=== PATIENT | male | born 1935 | race Caucasian/White ===

== ENCOUNTER 2019-08-06 00:17 | Inpatient (IN) ==
--- NOTE | 2019-07-25 10:34 | EKG Report ---
Test Performed on : 07/25/2019 10:18:41 AM Test Reason : PAT Blood Pressure : / mmHG Vent. Rate : 075 BPM Atrial Rate : 375 BPM P-R Int : 000 ms QRS Dur : 172 ms QT Int : 444 ms P-R-T Axes : 000 -18 188 degrees QTc Int : 495 ms Atrial fibrillation. with a competing junctional pacemaker. with premature ventricular or aberrantly conducted complexes. Left bundle branch block Abnormal ECG When compared with ECG of 25-MAR-2011 13:26, Atrial fibrillation. has replaced Sinus rhythm. Left bundle branch block is now present Minimal criteria for Septal infarct are no longer present Confirmed by Dayana TRINIDAD, Yasmani ([id number]) on 07/26/2019 10:39:59 AM
[2019-07-25 10:36] LABS: URINE SOURCE CLEAN CATCH
[2019-07-25 10:44] LABS: BASO# 0.03 X1000 (0.0-0.2); BASO% 0.3 % (0.0-0.8); EOS# 0.46 X1000 (0.0-0.7); HEMATOCRIT 34.3 % (42.0-52.0); HEMOGLOBIN 10.1 g/dL (14.0-18.0); IMM GRAN# 0.03 X1000 (0.0-0.04); IMM GRAN% 0.3 % (0.0-0.5); LYMPH# 0.86 X1000 (1.2-3.4); LYMPH% 9.4 % (20.5-51.1); MCH 24.7 PG (27-31); MCHC 29.4 g/dL (33-37); MCV 83.9 FL (81-99); MONO% 7.7 % (1.7-9.3); MPV 10.7 FL (7.4-10.4); NEUT# 7.03 X1000 (1.4-6.5); NEUT% 77.3 % (42.2-75.2); PLT 194 X1000 (130-400); RBC 4.09 XMIL (4.7-6.1); RDW 20.5 % (11.5-14.5); WBC 9.11 X1000 (4.8-10.8)
[2019-07-25 10:45] LABS: BILIRUBIN URINE NEGATIVE (NEGATIVE); BLOOD URINE NEGATIVE (NEGATIVE); COLOR YELLOW; GLUCOSE URINE NEGATIVE (NEGATIVE); KETONE URINE NEGATIVE (NEGATIVE); LEUKOCYTES URINE NEGATIVE (NEGATIVE); NITRITE URINE NEGATIVE (NEGATIVE); PH URINE 5.5; PROTEIN URINE NEGATIVE (NEGATIVE); SP GRAVITY URINE 1.012; TURBIDITY URINE CLEAR (CLEAR); UROBILINOGEN URINE NORMAL (NORMAL)
[2019-07-25 10:46] LABS: UR EPITHELIAL CELLS <10 /HPF (<10); URINE BACTERIA NEGATIVE /HPF; URINE RBC <10 /HPF (<10); URINE WBC <10 /HPF (<10)
[2019-07-25 10:51] LABS: INR 2.97; PROTIME 31.8 Seconds (11.0-16.0)
[2019-07-25 10:52] LABS: PTT 48.6 Seconds (22.3-41.8)
[2019-07-25 10:54] LABS: HEMOGLOBIN A1C 5.6 % (4.8-6.0)
[2019-07-25 11:11] LABS: ALBUMIN 4.3 g/dL (3.5-5.0); CREATININE 2.3 mg/dL (0.7-1.2); POTASSIUM 4.3 mmol/L (3.5-5.1)
[2019-08-06] MEDS ORDERED: REGLAN ONE (07:21)
[2019-08-06] MEDS ORDERED: COLACE ONE (07:21)
[2019-08-06] MEDS ORDERED: PEPCID ONE (07:21)
[2019-08-06] MEDS ORDERED: CELEBREX ONE (07:22)
[2019-08-06] MEDS ORDERED: KEFZOL 1 GM/D5W 2 GM/100 ML IVPB ONE (07:22)
[2019-08-06] MEDS ORDERED: LYRICA ONE (07:22)
[2019-08-06] MEDS ORDERED: LR 500 ML ONE (07:22)
[2019-08-06] MEDS ORDERED: SENSORCAINE-MPF 0.5%/EPI 1:200,000 ONE (07:34)
[2019-08-06] MEDS ORDERED: VANCOMYCIN ONE (07:34)
[2019-08-06] MEDS ORDERED: DURAMORPH ONE (07:34)
[2019-08-06] MEDS ORDERED: TORADOL ONE (07:34)
[2019-08-06] MEDS ORDERED: CYKLOKAPRON 1,000 MG/NS 1,000 MG/100 ML IVPB ONE (07:35)
[2019-08-06] MEDS ORDERED: NEOSPORIN G.U. IRRIGANT ONE (07:35)
[2019-08-06] MEDS ORDERED: SODIUM CHLORIDE 0.9% ONE (07:35)
[2019-08-06] MEDS ORDERED: EXPAREL 1.3% ONE (07:35)
[2019-08-06 07:47] LABS: INR 1.36
[2019-08-06] MEDS ORDERED: VERSED ONE (08:09)
[2019-08-06] MEDS ORDERED: FENTANYL ONE (08:09)
[2019-08-06] MEDS ORDERED: DIPRIVAN 1% ONE (08:10)
[2019-08-06] MEDS ORDERED: SUFENTA ONE (08:56)
[2019-08-06] MEDS ORDERED: ZOFRAN ONE (10:16)
[2019-08-06] MEDS ORDERED: EPHEDRINE ONE (10:16)
[2019-08-06] MEDS ORDERED: PITRESSIN ONE (10:17)
[2019-08-06] MEDS ORDERED: OFIRMEV 1000 MG/ISOTONIC SOLN 1,000 MG/100 ML BOTTLE ONE (10:17)
[2019-08-06 10:36] LABS: URINE SOURCE CATH
[2019-08-06 10:42] LABS: BILIRUBIN URINE NEGATIVE (NEGATIVE); BLOOD URINE NEGATIVE (NEGATIVE); COLOR YELLOW; GLUCOSE URINE NEGATIVE (NEGATIVE); KETONE URINE NEGATIVE (NEGATIVE); LEUKOCYTES URINE NEGATIVE (NEGATIVE); NITRITE URINE NEGATIVE (NEGATIVE); PH URINE 5.5; PROTEIN URINE TRACE mg/dL (NEGATIVE); SP GRAVITY URINE 1.018; TURBIDITY URINE CLEAR (CLEAR); UROBILINOGEN URINE NORMAL (NORMAL)
[2019-08-06 10:43] LABS: UR EPITHELIAL CELLS <10 /HPF (<10); URINE BACTERIA NEGATIVE /HPF; URINE RBC <10 /HPF (<10); URINE WBC <10 /HPF (<10)
--- NOTE | 2019-08-06 11:25 | OPERATIVE NOTE ---
PROCEDURE DATE: 08/06/2019 PREOPERATIVE DIAGNOSIS: Degenerative joint disease, right knee. POSTOPERATIVE DIAGNOSIS: Degenerative joint disease, right knee. PROCEDURE PERFORMED: Right total knee replacement. SURGEON: Kip Brady MD. LINUX SUPPORT ENGINEER: IVAN Pardo. Ms. Mcdonnell was necessary for proper retraction and manipulation during the case. ANESTHESIA: General. COMPLICATION: None. PROCEDURE IN DETAIL: This 84-year-old male presents for right knee replacement. Risks, benefits, and no guarantees were discussed, and he is willing to proceed. He was taken the operating room and satisfactory anesthesia obtained. The right leg was prepped and draped in usual sterile fashion. A time-out was taken to confirm operative site, procedure, and patient. The leg was wrapped with an Esmarch and tourniquet inflated to 300 mmHg. A midline incision was made down the front of the knee followed by a quad tendon sparing arthrotomy. The patella was everted and resurfaced with freehand technique and subluxed laterally. With the knee flexed, an intramedullary hole was made in the distal femur, and the distal femoral cutting block was secured in 5 degrees of valgus. Then, 10 mm was taken off the distal femur and the distal femur sized to a size 9 DePuy Attune femoral implant. The 4 in 1 block was secured and the anterior, posterior and chamfer cuts sequentially made. Care was taken to preserve the PCL. Any remaining osteophytes were debrided. Posterior osteophytes were debrided from the femur as well as a couple loose bodies. The knee was flexed and a PCL retractor placed behind the tibia to protect the neurovascular bundle. Tibial cutting block was secured and the tibial resection made. Flexion and extension gaps were slightly tight in both areas and an additional 2 mm taken off the tibia with good soft tissue balance. The tibia was sized to a size 10 tibial tray. A trial reduction was performed with a size 10 trial tray, a size 9 cruciate retaining femoral component with good range of motion and stability with a 6 mm spacer. The patella was sized to a 38 medialized dome patella. The drill holes were placed for the patella and femoral implants and the trial components removed. The bony surfaces were thoroughly irrigated with irrigant and then dried. Cement with a gram of vancomycin was utilized to cement a size 10 rotating platform DePuy Attune tibial tray, a size 9 right cruciate retaining femoral component and a 38 medialized dome patella. Excess cement was removed with a [place] elevator. While the cement cured, the joint capsule was injected with Exparel and a Hemovac drain placed. After curing the cement, a size 9, 6 mm thick rotating platform polyethylene bearing was inserted in the tibial tray and the knee reduced. Final range of motion was 0 to 120 degrees with midline patellar tracking. The wound was copiously irrigated and closed over the drain with #1 Vicryl in the arthrotomy, 2-0 Vicryl in the subcutaneous and skin tenzin on the skin edges. Sterile dressings were applied and the tourniquet released with good return of capillary blood flow. No intraoperative complications were noted. Instrument count and sponge count was correct at the time of closure. cc: Billy Brady MD
[2019-08-06] MEDS ORDERED: NS 1,000 ML ONE (12:09)
[2019-08-06] MEDS ORDERED: MORPHINE IV PRN ×3 (12:45)
[2019-08-06] MEDS ORDERED: ZOFRAN IV PRN (12:45)
[2019-08-06] MEDS ORDERED: ZOFRAN ODT PO PRN (12:45)
[2019-08-06] MEDS ORDERED: OXY IR PO PRN ×2 (12:45)
--- NOTE | 2019-08-06 13:15 | Diag Imaging Result Doc PS360 ---
EXAM: KNEE 1-2 VIEWS-RIGHT 08/06/2019 HISTORY: post op total knee TECHNIQUE: Right knee two views COMMENT: There is a total knee arthroplasty. There is no evidence of acute bony abnormality. IMPRESSION: Postsurgical changes. Electronically signed by Brian Zimmerman 08/06/2019 1:13 PM
--- NOTE | 2019-08-06 14:06 | ORTHOPAEDICS PROGRESS NOTE ---
DATE: 08/06/2019 SUBJECTIVE: Mr. Hollis is seen status post right total knee replacement. He is awake and alert at the present time. OBJECTIVE: Vital signs are stable. His postop x-rays look good. His bandage is clean and dry. He is able to move the ankle up and down. There is good capillary refill. He has minimal discomfort currently. PLAN: We will plan on mobilizing over the next several days. We have also asked the hospitalist to see him for medical and geriatric care. cc: Billy Brady MD
[2019-08-06] MEDS: TYLENOL PO SCH (14:43)
[2019-08-06] MEDS: ULTRAM PO SCH ×2 (14:48→19:57)
[2019-08-06] MEDS: KEFZOL 2 GM/D5W 2 GM/50 ML IVPB IV SCH (17:17)
[2019-08-06] MEDS: NS 1,000 ML IV SCH (19:56)
[2019-08-06 20:06] LABS: HEMATOCRIT 30.6 % (42.0-52.0); HEMOGLOBIN 9.4 g/dL (14.0-18.0); MCHC 30.7 g/dL (33-37); MCV 87.9 FL (81-99); MPV 12.1 FL (7.4-10.4); RBC 3.48 XMIL (4.7-6.1); WBC 9.45 X1000 (4.8-10.8)
[2019-08-06 20:32] LABS: CALCIUM 8.7 mg/dL (8.8-10.2); CREATININE 2.3 mg/dL (0.7-1.2); POTASSIUM 4.3 mmol/L (3.5-5.1)
--- NOTE | 2019-08-06 20:49 | CONSULTATION ---
DATE OF CONSULTATION: 08/06/2019 CHIEF COMPLAINT: Medical management after right knee arthroplasty by Dr. Brady. HISTORY OF PRESENT ILLNESS: He is a complicated historian. An 84-year-old white gentleman, had a right knee arthroplasty done. The patient stopped Coumadin 3 days ago. He has chronic anemia. Postoperatively, the patient denies any chest pain or shortness of breath. Oxygen level is 100%. Hemodynamics are stable. He also had anemia workup that was negative, outpatient. PAST MEDICAL HISTORY: Atrial fibrillation; left-sided carotid stenosis, 70%; cutaneous ulcers in the right alicea, healing; chronic kidney disease, creatinine 2.0; coronary artery disease; acid reflux disease; gout; hyperlipidemia; hypertension; ITP; sleep apnea; low HDL; varicose veins of lower extremities; PAD; left carotid disease; right superficial femoral artery stenosis. Right MARGA 0.3, left side is 1.0. 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 MEDICATIONS: Warfarin 3 mg daily, pravastatin 20 mg daily, Coreg 25 p.o. b.i.d., Aldactone 25 in the morning, Prilosec 40 mg daily, Lasix 260 mg daily, vitamin C 500 mg daily, calcitriol 0.25 mcg daily, Pletal 100 mg daily, sublingual B12 daily, allopurinol 300 daily, aspirin 81 mg daily, iron sulfate 325 daily. ALLERGIES: Not known. SOCIAL HISTORY: He is . used to work in [facility] [facility] [employer]. No smoking. No alcohol. No drug abuse. FAMILY HISTORY: Father of lung cancer at 62, mother at 57 with pancreatic and liver cancer. REVIEW OF SYSTEMS: No headache, no vision problem. Cardiopulmonary: No chest pain, shortness of breath, PND or orthopnea. GI: No nausea, no vomiting, abdominal pain. No neurological symptoms or weakness. PHYSICAL EXAMINATION: Temperature is 94 degrees, pulse 56, vital signs are stable; 100% on room air. Slightly pale. Chest: Bilateral air entry. Irregular heart sounds, rate well controlled. Belly is soft, nontender. He had a right knee arthroplasty done. No signs of gangrene. No neurological deficits. LABORATORY DATA: CBC pending. PT 17, INR 1.3. Glucose 186. A1c 5.6. Urinalysis is clear. ASSESSMENT AND PLAN: 1. An 84-year-old complicated historian, admitted to the hospital status post right knee arthroplasty. Plan as follows. 2. Chronic atrial fibrillation. Cleared by Dr. Puente. Restart on warfarin along with aspirin. 3. Peripheral arterial disease in the right leg, on Pletal 100 daily. 4. History of sleep apnea, on continuous positive airway pressure machine by Dr. Mehta. 5. Chronic kidney disease stage 3. Creatinine 2.0. 6. Acid reflux disease, on Prilosec 40 mg daily. 7. Gout, on allopurinol 300 daily. 8. Hyperlipidemia, on pravastatin 20 daily. 9. History of coronary artery disease, status post stents and bypass surgery; automatic implantable cardioverter-defibrillator. Continue on Coreg and Aldactone. 10. Left carotid stenosis 70%, stable. 11. Vitamin D and B12 deficiency, on replacement therapy. 12. Repeat the CBC, BMP in the morning. Continue to monitor PT/INR. Discussed the plan of care with family. He wants to go home after he recovers from the surgery. We will follow up. Once again, thanks for the kind referral. cc: MD Billy Gaston MD
[2019-08-06] MEDS ORDERED: CELEBREX PO SCH (21:00)
[2019-08-07] MEDS: TYLENOL PO SCH ×4 (01:00→19:13)
[2019-08-07] MEDS: KEFZOL 2 GM/D5W 2 GM/50 ML IVPB IV SCH (01:01)
[2019-08-07] MEDS: NS 1,000 ML IV SCH ×3 (01:01→15:47)
[2019-08-07] MEDS: COLACE PO SCH ×3 (02:05→21:44)
[2019-08-07] MEDS: COREG PO SCH ×2 (02:06→08:19)
[2019-08-07] MEDS: PERIDEX MT SCH ×3 (02:06→21:44)
[2019-08-07] MEDS: ULTRAM PO SCH ×3 (02:08→15:43)
[2019-08-07 06:31] LABS: BASO# 0.02 X1000 (0.0-0.2); BASO% 0.3 % (0.0-0.8); EOS# 0.06 X1000 (0.0-0.7); EOS% 0.8 % (0.0-10.0); HEMATOCRIT 29.9 % (42.0-52.0); HEMOGLOBIN 8.9 g/dL (14.0-18.0); LYMPH# 0.63 X1000 (1.2-3.4); MCH 26.2 PG (27-31); MCHC 29.8 g/dL (33-37); MCV 87.9 FL (81-99); MONO# 0.58 X1000 (0.11-0.59); MONO% 7.4 % (1.7-9.3); MPV 11.8 FL (7.4-10.4); NEUT# 6.57 X1000 (1.4-6.5); NEUT% 83.5 % (42.2-75.2); PLT 139 X1000 (130-400); RDW 21.9 % (11.5-14.5); WBC 7.86 X1000 (4.8-10.8)
[2019-08-07 06:53] LABS: CALCIUM 8.2 mg/dL (8.8-10.2); CREATININE 2.5 mg/dL (0.7-1.2); POTASSIUM 4.7 mmol/L (3.5-5.1)
[2019-08-07 07:24] LABS: INR 1.56
[2019-08-07] MEDS ORDERED: COUMADIN PO ONE (07:55)
[2019-08-07] MEDS: ZYLOPRIM PO SCH (08:34)
[2019-08-07] MEDS: ASPIRIN PO SCH (08:34)
[2019-08-07] MEDS: PLETAL PO SCH (08:34)
[2019-08-07] MEDS: PRILOSEC PO SCH (08:34)
[2019-08-07] MEDS: ROCALTROL PO SCH (08:34)
[2019-08-07] MEDS: FERROUS SULFATE PO SCH (08:34)
[2019-08-07] MEDS: VITAMIN C PO SCH (08:34)
[2019-08-07] MEDS: VITAMIN B-12 PO SCH (08:35)
[2019-08-07] MEDS: PEPCID PO SCH (08:35)
[2019-08-07] MEDS: PRAVACHOL PO SCH (08:35)
[2019-08-07] MEDS: COUMADIN PO SCH (08:37)
[2019-08-07] MEDS: ALDACTONE PO SCH (08:38)
--- NOTE | 2019-08-07 08:39 | PROGRESS NOTE ---
DATE: 08/07/2019 SUBJECTIVE: The patient denies having any acute complaints this morning. OBJECTIVE: Vital Signs: Temperature 98 degrees, pulse 61 per minute, respiratory rate 16 per minute, blood pressure 101/48, pulse oximetry 100% on 2 liters of oxygen via nasal cannula. General: Patient is alert and awake. He does not appear to be in any acute distress. Cardiovascular System: First and second heart sounds are audible without any murmurs or gallops. Irregular rhythm is present. Respiratory System: Bilateral lung air entry is good without any rales or rhonchi. Gastrointestinal System: Abdomen is benign. Musculoskeletal System: Right knee has a surgical dressing. DIAGNOSTIC DATA: CBC done this morning showed hemoglobin of 8.9 and hematocrit 29.9. In comparison, his hemoglobin and hematocrit were 9.4 and 30.6 yesterday. Basic metabolic panel showed BUN of 45 and creatinine 2.5. In comparison, his BUN and creatinine were 41 and 2.3 on 07/25/2019 and were 44 and 2.3 respectively on 08/06/2019. INR was found to be 1.56 this morning. IMPRESSION AND PLAN: This is an 84-year-old gentleman who has multiple medical conditions, including chronic atrial fibrillation, peripheral arterial disease, stage 3 chronic kidney disease, sleep apnea, dyslipidemia, and gastroesophageal reflux disease, who recently underwent right sided total knee arthroplasty. He does have some anemia that is currently being monitored. We will give him packed red blood cell transfusion if needed. His INR is subtherapeutic at 1.56, and therefore, I am going to give him an additional dose of warfarin 3 mg orally now in addition to 3 mg of warfarin that he has been taking on a daily basis. Overall condition is stable, and we will continue with this care as per Orthopedics for physical therapy and treatment of his right knee. cc: MD Billy Bhatt MD
[2019-08-07] MEDS: LASIX PO SCH ×2 (08:40→08:42)
--- NOTE | 2019-08-07 10:22 | ORTHOPAEDICS PROGRESS NOTE ---
DATE: 08/07/2019 SUBJECTIVE: Mr. Schwartz is seen status post total knee replacement. OBJECTIVE: This morning he is awake and alert and cooperative. His hematocrit is 29. Vital signs show that he is afebrile. Blood pressure has been relatively good except for 1 drop down to 93/48 overnight. It is back up to 101/48, currently. PLAN: We will keep him in-house today. The hospitalist is adjusting his Coumadin level. Currently, he is not stable enough to be discharged home. We will consider repeat evaluation for home discharge versus inpatient rehab tomorrow cc: Billy Brady MD
[2019-08-07] MEDS ORDERED: ULTRAM PO PRN (18:49)
[2019-08-08] MEDS: COREG PO SCH ×2 (00:17→09:05)
[2019-08-08] MEDS: TYLENOL PO SCH ×4 (04:38→18:02)
[2019-08-08] MEDS: NS 1,000 ML IV SCH ×2 (05:21→18:59)
[2019-08-08 06:50] LABS: INR 1.58; PROTIME 19.1 Seconds (11.0-16.0)
[2019-08-08 07:06] LABS: CALCIUM 8.4 mg/dL (8.8-10.2); CREATININE 3.1 mg/dL (0.7-1.2); POTASSIUM 4.8 mmol/L (3.5-5.1)
[2019-08-08] MEDS: FERROUS SULFATE PO SCH (09:00)
[2019-08-08] MEDS: ALDACTONE PO SCH ×2 (09:00→09:06)
[2019-08-08] MEDS: PRILOSEC PO SCH (09:00)
[2019-08-08] MEDS: ASPIRIN PO SCH (09:00)
[2019-08-08] MEDS: ROCALTROL PO SCH (09:00)
[2019-08-08] MEDS: ZYLOPRIM PO SCH (09:00)
[2019-08-08] MEDS: COUMADIN PO SCH (09:01)
[2019-08-08] MEDS: VITAMIN B-12 PO SCH (09:01)
[2019-08-08] MEDS: PEPCID PO SCH (09:01)
[2019-08-08] MEDS: PRAVACHOL PO SCH (09:01)
[2019-08-08] MEDS: VITAMIN C PO SCH (09:01)
[2019-08-08] MEDS: COLACE PO SCH (09:01)
[2019-08-08] MEDS: PERIDEX MT SCH (09:02)
[2019-08-08] MEDS: LASIX PO SCH (09:02)
[2019-08-08] MEDS: PLETAL PO SCH (09:02)
--- NOTE | 2019-08-08 09:48 | ORTHOPAEDICS PROGRESS NOTE ---
DATE: 08/08/2019 Mr. Schwartz is seen status post total knee replacement. He is stable with vital signs. There is some [id number] hypotension intermittently. He continues to require significant assistance with mobility. He requires roughly 2 with standby assist for mobility training. Currently, he is not a candidate for home discharge or rehab. Will make arrangements to go ahead and begin discharge planning for inpatient rehab. He could go tomorrow if he is medically stable. The bandage and incision are clean and dry. There are no signs of DVT or surgical complications. He appears to be predominantly limited due to his overall geriatric condition. cc: Billy Brady MD
--- NOTE | 2019-08-08 13:11 | Diag Imaging Result Doc PS360 ---
EXAM: CHEST-1 VIEW 08/08/2019 HISTORY: REHAB TECHNIQUE: AP portable at 1301 COMMENT: There is pleural thickening and fibrosis on the left. There is mild cardiomegaly. There are sternotomy wires and there is a pacemaker on the left. Overall there has been no appreciable change since 03/07/2014. IMPRESSION: Stable chest. Electronically signed by Brian Zimmerman 08/08/2019 1:09 PM
[2019-08-09] MEDS: COLACE PO SCH (00:14)
[2019-08-09] MEDS: PERIDEX MT SCH ×2 (00:14→09:54)
[2019-08-09] MEDS: COREG PO SCH ×2 (00:15→09:57)
[2019-08-09] MEDS: TYLENOL PO SCH ×4 (00:15→06:41)
[2019-08-09 06:58] LABS: CREATININE 2.6 mg/dL (0.7-1.2); POTASSIUM 5.1 mmol/L (3.5-5.1)
[2019-08-09 07:00] LABS: INR 1.75; PROTIME 20.8 Seconds (11.0-16.0)
--- NOTE | 2019-08-09 07:43 | DISCHARGE SUMMARY ---
ADMISSION DATE: 08/06/2019 DISCHARGE DATE: 08/09/2019 PREOPERATIVE DIAGNOSIS: Degenerative joint disease, right knee. ADDITIONAL DIAGNOSES: 1. Gout. 2. Atrial fibrillation. 3. Mild senile dementia. DISCHARGE DIAGNOSES: 1. Degenerative joint disease, right knee. 2. Gout. 3. Atrial fibrillation. 4. Mild senile dementia. 5. Acute blood loss anemia. ADMITTING HISTORY AND HOSPITAL COURSE: This 84-year-old male with DJD about the right knee was admitted for knee replacement. He underwent successful knee replacement. Postoperatively, he has really been uncomplicated, other than some mild postop anemia due to acute blood loss. This has been relatively stable and he has not had any continued progressive blood loss. At the present time, he is afebrile with stable vital signs. He is requiring assistance for mobilization, is transferred to rehab center for continued strength training and convalescent care. He can be mobilized full weightbearing on the right lower extremity. Range of motion 0 to 120 degrees. He needs follow up with me in roughly 2 weeks for staple removal, or they can be removed in 10 days after admission to the rehab center. He is to return in the interim for any worsening signs or symptoms. DISCHARGE MEDICATIONS: 1. Allopurinol 300 mg daily. 2. Vitamin C 500 mg daily. 3. 81 mg aspirin daily. 4. Calcitriol 0.25 mcg daily. 5. Carvedilol or Coreg 25 mg b.i.d. 6. Cilostazol 100 mg daily. 7. Vitamin B 12 3000 mcg sublingual daily. 8. Colace 100 mg b.i.d. 9. Iron sulfate 325 daily. 10. Lasix 20 mg three pills daily for a total of 60 mg. 11. Prilosec 40 mg daily. 12. Oxy-IR 5 mg every 3 hours as needed for pain. 13. Pravachol 20 mg daily. 14. Aldactone 25 mg q.a.m. 15. Coumadin 3 mg daily. cc: Billy Brady MD
[2019-08-09 08:10] VITALS: BP 142/68
[2019-08-09] MEDS: PLETAL PO SCH (09:55)
[2019-08-09] MEDS: FERROUS SULFATE PO SCH (09:55)
[2019-08-09] MEDS: PRAVACHOL PO SCH (09:55)
[2019-08-09] MEDS: VITAMIN B-12 PO SCH (09:55)
[2019-08-09] MEDS: VITAMIN C PO SCH (09:56)
[2019-08-09] MEDS: ZYLOPRIM PO SCH (09:56)
[2019-08-09] MEDS: PRILOSEC PO SCH (09:56)
[2019-08-09] MEDS: COUMADIN PO SCH (09:56)
[2019-08-09] MEDS: ROCALTROL PO SCH (09:56)
[2019-08-09] MEDS: PEPCID PO SCH (09:56)
[2019-08-09] MEDS: ASPIRIN PO SCH (09:56)
[2019-08-09] MEDS: ALDACTONE PO SCH (09:57)
[2019-08-09] MEDS: LASIX PO SCH (09:57)
== END 2019-08-09 11:19 | DRG 470 ==
LOC: SURHOLD 00:17 → 4N 13:13
PROVIDERS: ADMIT Orthopaedic Surgery Adult Reconstructive Orthopaedic Surgery; ATTEND Orthopaedic Surgery Adult Reconstructive Orthopaedic Surgery

== ENCOUNTER 2019-08-26 17:57 | Inpatient (IN) ==
[2019-08-26] MEDS ORDERED: RELISTOR SUBQ ONE (18:25)
[2019-08-26] MEDS ORDERED: GOLYTELY PO ONE (18:25)
[2019-08-26] MEDS ORDERED: LEVAQUIN 250 MG/D5W 250 MG/50 ML IVPB IV ONE (18:26)
[2019-08-26 19:00] LABS: BASO# 0.04 X1000 (0.0-0.2); BASO% 0.4 % (0.0-0.8); EOS# 0.06 X1000 (0.0-0.7); EOS% 0.6 % (0.0-10.0); HEMATOCRIT 35.7 % (42.0-52.0); HEMOGLOBIN 10.8 g/dL (14.0-18.0); LYMPH# 0.94 X1000 (1.2-3.4); MCH 27.4 PG (27-31); MCHC 30.3 g/dL (33-37); MCV 90.6 FL (81-99); MONO# 0.72 X1000 (0.11-0.59); MONO% 7.6 % (1.7-9.3); MPV 10.2 FL (7.4-10.4); NEUT# 7.66 X1000 (1.4-6.5); NEUT% 81.4 % (42.2-75.2); PLT 233 X1000 (130-400); RBC 3.94 XMIL (4.7-6.1); RDW 19.9 % (11.5-14.5); WBC 9.42 X1000 (4.8-10.8)
[2019-08-26 19:05] LABS: INR 1.65; PROTIME 19.9 Seconds (11.0-16.0)
[2019-08-26 19:15] LABS: CALCIUM 10.2 mg/dL (8.8-10.2); CREATININE 2.4 mg/dL (0.7-1.2); POTASSIUM 4.6 mmol/L (3.5-5.1)
[2019-08-26 19:30] LABS: EOS 1 % (1-10); LARGE PLATELETS OCCASIONAL; LYMPHS 7 % (21-51); MONO 6 % (1-9); SEGS 84 % (42-75)
[2019-08-26 19:31] LABS: ANISOCYTOSIS 1+
[2019-08-26] MEDS ORDERED: ULTRAM PO PRN (19:56)
[2019-08-26] MEDS: COREG PO SCH (20:33)
[2019-08-26] MEDS ORDERED: DULCOLAX PR SCH (21:00)
--- NOTE | 2019-08-26 22:37 | HISTORY AND PHYSICAL ---
CHIEF COMPLAINT: Abdominal pain, constipation. BRIEF HISTORY: This 84-year-old white male recently had right knee arthroplasty last year and sent to rehab. He is very complicated historian. He just got out of the rehab and indeed he was seen as a followup with Dr. Brady. His right knee is slightly red, gave some antibiotics. His brought him to our office with abdominal pain, rectal pain. He had a fecal impaction noted. X-ray showed he has constipation all the way to the colon. He has been taking oxycodone. Last bowel movement was more than a week ago. The patient's has been giving magnesium citrate without any help. Options are discussed. Basically admitted for observation for fecal impaction. Also IV antibiotics for redness in the right knee area. He was not able to ambulate and as a result admitted to the hospital. PAST MEDICAL HISTORY: Atrial fibrillation, left-sided carotid stenosis 70%, cutaneous ulcers in the right alicea healing, chronic kidney disease, coronary artery disease, acid reflux disease, gout, hyperlipidemia, hypertension, ITP, sleep apnea, low HDL, varicose veins of lower extremity, superficial femoral artery stenosis on the right side, MARGA 0.3, left side is 1.0. 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 ALLERGIES: Not known. MEDICATIONS: Warfarin 3 mg daily, pravastatin 20 mg daily, Coreg 25 p.o. b.i.d., Aldactone 25 mg in the morning, Prilosec 40 daily, Lasix 60 mg daily, vitamin C 500 mg daily, calcitriol 0.25 mcg daily, Pletal 100 daily, B12 2500 mcg sublingual daily, Zyloprim 300 mg daily, aspirin 81 mg daily, iron sulfate 325 daily, Colace 100 p.o. b.i.d., Oxy IR 5 mg q.3 hours as needed, doxycycline 100 p.o. b.i.d. ALLERGIES: Are not known. SOCIAL HISTORY: He is . His used to work at [employer]. No smoking. No alcohol. No drug abuse. FAMILY HISTORY: Father of lung cancer at 62. Mom at 57 with pancreatic and liver cancer. REVIEW OF SYSTEMS: HEENT: No headache. No vision problem. No earache. No sore throat. Neck: No goiter. No lymphadenopathy. No bruit. Cardiopulmonary: No chest pain, shortness of breath, PND, orthopnea. Gastrointestinal: Abdominal pain, constipation. No bleeding per rectum. Genitourinary: No history of hesitancy, frequency, dysuria. Slight redness in the right knee. No swelling of feet. Neurologic: No focal symptoms or weakness. PHYSICAL EXAMINATION: VITAL SIGNS: Temperature is 98.3, pulse 77. Vitals are stable. 6 feet 2 inches, 180 pounds. HEENT: Atraumatic, normocephalic. Pupils equal, react to light. TMs are normal. Nose and throat within normal limits. NECK: Supple. No lymphadenopathy. CHEST: Bilateral air entry. HEART: Sounds are regular. ABDOMEN: Belly is soft, distended. No signs of peritonitis. RECTAL: Deferred. Right knee is slightly red. NEUROLOGIC: No focal deficits noted. INVESTIGATIONS: White cell count 9.4, hematocrit 35, platelets 233,000, PT 99, INR 1.65. Sodium 134, potassium 4.6, BUN 34, creatinine 2.4, and glucose 145. TSH is normal. Flat/upright of the abdomen with chest in my office: Cardiomegaly, status post AICD, blunting of CP angle on the left side. Significant stool noted throughout the left colon and the rectum. ASSESSMENT AND PLAN: 1. An 84-year-old white male admitted to the hospital for observation with fecal impaction, abdominal distention due to narcotics. Plan is Relistor, GoLYTELY, Dulcolax and tramadol for pain. 2. Status post right knee arthroplasty. Levaquin 1 dose was given. Continue doxycycline 100 mg daily, and repeat the flat/upright of the abdomen in the morning. 3. Reconcile home medications, and we ill follow up. This is basically for observation 24 hours. cc: Clayton Song MD
[2019-08-27] MEDS ORDERED: PRILOSEC PO SCH (07:00)
[2019-08-27] MEDS ORDERED: ZYLOPRIM PO SCH (09:00)
[2019-08-27] MEDS ORDERED: LASIX PO SCH (09:00)
[2019-08-27] MEDS ORDERED: VITAMIN C PO SCH (09:00)
[2019-08-27] MEDS ORDERED: VITAMIN B-12 SL SCH (09:00)
[2019-08-27] MEDS ORDERED: ASPIRIN EC PO SCH (09:00)
[2019-08-27] MEDS ORDERED: DOXYCYCLINE PO SCH ×2 (09:00)
[2019-08-27] MEDS ORDERED: ALDACTONE PO SCH (09:00)
[2019-08-27] MEDS ORDERED: ROCALTROL PO SCH (09:00)
[2019-08-27] MEDS: COREG PO SCH (09:20)
--- NOTE | 2019-08-27 10:26 | Diag Imaging Result Doc PS360 ---
ABDOMEN FLAT/UPRIGHT - 08/27/2019 INDICATION: pain COMPARISON: None FINDINGS: There are cholecystectomy clips. There is a nonobstructive bowel gas pattern. No free air or abnormal calcifications. No significant constipation. Not very much bowel gas in the rectum. IMPRESSION: No acute disease. Electronically signed by Zoltan Casey 08/27/2019 10:24 AM
[2019-08-27 11:44] VITALS: BP 123/55
[2019-08-27] MEDS ORDERED: PRAVACHOL PO SCH (21:00)
[2019-08-27] MEDS ORDERED: COUMADIN PO SCH (21:00)
--- NOTE | 2019-08-31 17:07 | DISCHARGE SUMMARY ---
ADMISSION DATE: 08/26/2019 DISCHARGE DATE: 08/27/2019 DISCHARGING DIAGNOSIS: Abdominal pain due to constipation from narcotics. SECONDARY DIAGNOSES: 1. Chronic atrial fibrillation. 2. Left-sided carotid stenosis 70%. 3. Status post right knee arthroplasty with localized redness. 4. Chronic kidney disease stage 3 creatinine 2.2. 5. Coronary artery disease. 6. Acid reflux disease. 7. Gout. 8. Hyperlipidemia. 9. Hypertension. 10. ITP. 11. Sleep apnea. 12. Low HDL. 13. Varicose veins in the lower extremities . 14. Right superficial femoral artery stenosis, ankle brachial index 0.3, on the left side is 1.0. BRIEF HISTORY: Please see the H and P that was done on 08/26. In brief he is an 84-year-old white male recently discharged from the rehab after right knee arthroplasty done by Dr. Brady. The patient came in my office with abdominal pain, redness over the right knee. There was no signs of abscess noted on the knee. His belly was distended with a lot of stool in the left colon and the rectum. The patient was giving Maalox and without any help. Basically admitted to the hospital. The patient was given IV Levaquin 1 dose followed by Go Light, Relistor, and Dulcolax. He had several good bowel movements. The belly was soft and benign. LABS: At the time of discharge as follows CBC: White cell count 9.4, hematocrit 35.7, platelets 233,000. PT 19. INR 1.65. Sodium 134, potassium 4.6, BUN 34, creatinine 2.4, glucose 145. TSH is normal. Followup chest x-ray: Improvement of the constipation. DISPOSITION: The patient was discharged home with the following instructions: 1. Warfarin 3 mg daily, pravastatin 20 daily, Coreg 25 p.o. b.i.d., Aldactone 25 in the morning, Prilosec 40 daily, Lasix 60 in the morning, vitamin C 500 mg daily, calcitriol 0.25 mcg daily, Cilostazol 100 daily, sublingual B12 3000 sublingual daily, Zyloprim 300 daily, Aspirin 81 mg daily, iron sulfate 325 daily, Colace 100 p.o. b.i.d. ,discontinue oxycodone. Doxycycline decreased to 50 mg p.o. b.i.d. and MiraLAX 17 g daily. 2. Check the PT/INR next week. 3. Follow up in my office in 10 days. cc: MD Billy Gaston MD
== END 2019-08-27 14:24 | disposition home or self-care (01) | DRG 392 ==
LOC: DIRADM → OBSVTOIN 17:57 → 3N 18:09
PROVIDERS: ADMIT Internal Medicine; ATTEND Internal Medicine